=== PATIENT | male | born 1980 ===

== ENCOUNTER 2018-11-19 09:26 | Emergency (ER) | payer OTHER ==
[2018-11-19 09:37] VITALS: BMI 24.3
[2018-11-19] MEDS ORDERED: Alum-Mag Hydrox-Simethicone Susp (30 mL) PO ONE (10:23)
[2018-11-19] MEDS ORDERED: Sodium Chloride 0.9% 1,000 ML IV STA (10:23)
[2018-11-19] MEDS ORDERED: Alum-Mag Hydrox-Simethicone Susp (30 mL) ONE (10:54)
[2018-11-19 11:13] LABS: BASO # 0.1 K/uL (0.0-0.2); BASO % 1.1 % (0.0-2.0); EOS # 0.1 K/uL (0.0-0.7); EOS % 1.6 % (0.0-4.0); HEMOGLOBIN 15.1 g/dL (12.0-18.0); LYMPH # 1.6 K/uL (1.0-4.3); LYMPH % 30.6 % (20.0-40.0); MEAN CELL VOLUME 89.9 fl (80.0-94.0); MEAN CORPUSCULAR HGB CONC 33.3 g/dL (33.0-37.0); MEAN PLATELET VOLUME 9.1 fl (7.2-11.7); MONO # 0.4 K/uL (0.0-0.8); MONO % 7.3 % (0.0-10.0); NEUT % 59.4 % (50.0-75.0); NRBC % 0.2 % (0.0-0.0); RBC 5.04 Mil/uL (4.40-5.90); RED CELL DISTRIBUTION WIDTH 13.4 % (11.5-14.5); WHITE BLOOD COUNT 5.1 K/uL (4.8-10.8)
[2018-11-19 11:40] LABS: ALB/GLOB RATIO 1.4 (1.0-2.1); ALBUMIN 5.3 g/dL (3.5-5.0); ALT/SGPT 64 U/L (21-72); AST/SGOT 46 U/L (17-59); BLOOD UREA NITROGEN 18 mg/dl (9-20); CALCIUM 9.8 mg/dL (8.4-10.2); GFR NON-AFRICAN AMERICAN > 60; LIPASE 89 U/L (23-300)
--- NOTE | 2018-11-19 12:33 | US ---
Date of service: 11/19/2018 HISTORY: epigastric discomfort COMPARISON: None. TECHNIQUE: Sonographic evaluation of the right upper quadrant of the abdomen. FINDINGS: LIVER: Measures 16.1 cm in length. Moderate increased echogenicity of the liver parenchyma. No mass. No intrahepatic bile duct dilatation. GALLBLADDER: Unremarkable. No gallstones. COMMON BILE DUCT: Measures 2.9 mm. No stones. No dilatation. PANCREAS: Unremarkable as visualized. No mass. No ductal dilatation. RIGHT KIDNEY: Measures 11 x 5.2 x 4.1 cm in length. Normal echogenicity. No calculus, mass, or hydronephrosis. AORTA: No aneurysmal dilatation. IVC: Unremarkable. OTHER FINDINGS: None . IMPRESSION: No evidence of cholelithiasis or cholecystitis. Findings suggestive of [id number] hepatic steatosis.
--- NOTE | 2018-11-19 12:44 | ED PDOC ---
HPI: Abdomen Time Seen by Provider: 11/19/18 10:09 Chief Complaint (Nursing): Abdominal Pain Chief Complaint (Provider): epigastric pain, loose stools History Per: Patient History/Exam Limitations: no limitations Additional Complaint(s): 38 y/o M with HTN who presents with epigastric abdominal pain for the past 2 months. He states that the pain is intermittent and usually has chest pressure with it. Episodes can last several hours and cause him to lose his appetite. Denies radiation of pain to arm or jaw, dizziness or SOB. He does have episodes of palpitations when the pain begins and feels that he has become anxious about it. He was seen in [facility] 2 days ago for the chest pressure. Records reviewed and troponin, CXR and blood work were unremarkable. No meds given as per patient. He states that the chest pressure recurred and he began to feel sweaty and had 4 episodes of loose stools yesterday. Denies dizziness, fevers, chills, SOB, radiation of pain to arm or jaw. Past Medical History Reviewed: Historical Data, Nursing Documentation, Vital Signs Vital Signs: Last Vital Signs Temp 98.3 F 11/19/18 09:36 Pulse 70 11/19/18 09:36 Resp 18 11/19/18 09:36 BP 158/83 H 11/19/18 09:36 Pulse Ox 99 11/19/18 09:36 Primary Care Provider: Leonel Fuller - Medical History PMH: HTN, Hyperlipidemia - Surgical History Surgical History: No Surg Hx - Family History Family History: States: Unknown Family Hx - Home Medications Home Medications: Ambulatory Orders Medication Instructions Recorded Aluminum Hydroxide/Magnesium H 30 ml PO Q6 PRN 5 Days udc 11/19/18 [Maalox 30 ml] Famotidine [Pepcid] 20 mg PO BID 7 Days tab 11/19/18 - Allergies Allergies/Adverse Reactions: Allergies Allergy/AdvReac Type Severity Reaction Status Date / Time No Known Allergies Allergy Verified 11/19/18 10:01 Review of Systems Constitutional: Negative for: Fever Cardiovascular: Positive for: Chest Pain, Palpitations Respiratory: Negative for: Shortness of Breath Gastrointestinal: Positive for: Nausea, Vomiting, Abdominal Pain, Diarrhea Physical Exam - Reviewed Nursing Documentation Reviewed: Yes Vital Signs Reviewed: Yes - Physical Exam Appears: Positive for: Non-toxic Skin: Positive for: Normal Color Cardiovascular/Chest: Positive for: Regular Rate, Rhythm Respiratory: Positive for: Normal Breath Sounds Gastrointestinal/Abdominal: Positive for: Tenderness (+ epigastric tenderness on palpation). Negative for: Mass, Distended, Guarding, Rebound Neurological/Psych: Positive for: Awake, Alert, Oriented - Laboratory Results Result Diagrams: 11/19/18 11:05 11/19/18 11:05 Lab Results: Troponin I < 0.0120 ng/mL (0.00-0.120) 11/19/18 11:05 Total Bilirubin 0.4 mg/dl (0.2-1.3) 11/19/18 11:05 AST 46 U/L (17-59) 11/19/18 11:05 ALT 64 U/L (21-72) 11/19/18 11:05 Alkaline Phosphatase 82 U/L (38-126) 11/19/18 11:05 Total Protein 8.9 G/DL (6.3-8.2) H 11/19/18 11:05 Albumin 5.3 g/dL (3.5-5.0) H 11/19/18 11:05 Globulin 3.7 gm/dL (2.2-3.9) 11/19/18 11:05 Albumin/Globulin Ratio 1.4 (1.0-2.1) 11/19/18 11:05 Lipase 89 U/L (23-300) 11/19/18 11:05 - ECG O2 Sat by Pulse Oximetry: 99 Medical Decision Making Medical Decision Making: CBC, CMP, lipase, troponin EKG Abdominal U/S Pepcid 20mg IV Maalox 30mL PO x 1 Lidocaine viscous 15mL PO x 1 NS 1L IV X 1 EKG @ 10:31: sinus, HR 70, normal EKG Abdominal U/S: FINDINGS: LIVER: Measures 16.1 cm in length. Moderate increased echogenicity of the liver parenchyma. No mass. No intrahepatic bile duct dilatation. GALLBLADDER: Unremarkable. No gallstones. COMMON BILE DUCT: Measures 2.9 mm. No stones. No dilatation. PANCREAS: Unremarkable as visualized. No mass. No ductal dilatation. RIGHT KIDNEY: Measures 11 x 5.2 x 4.1 cm in length. Normal echogenicity. No calculus, mass, or hydronephrosis. AORTA: No aneurysmal dilatation. IVC: Unremarkable. OTHER FINDINGS: None . IMPRESSION: No evidence of cholelithiasis or cholecystitis. Findings suggestive of [id number] hepatic steatosis. Re-assessed: pt states that symptoms improved significantly with medications. Pt states has appointment with mold stamper next week. Pt given U/S results a nd advised to take Pepcid for the next week regularly and to use Maalox PRN. Return instructions given. Stable for d/c home. Disposition - Clinical Impression Clinical Impression: Gastritis - Patient ED Disposition Is Patient to be Admitted: No Counseled Patient/Family Regarding: Studies Performed, Diagnosis, Need For Followup, Rx Given - Disposition Referrals: Huy Yu MD, PhD [Staff Provider] - Disposition: Routine/Home Disposition Time: 13:55 Condition: STABLE Additional Instructions: Follow up with [facility] stam[facility] as planned next week for possible endoscopy given symptoms. Take Pepcid as prescribed and Maalox as needed. Prescriptions: Aluminum Hydroxide/Magnesium H [Maalox 30 ml] 30 ml PO Q6 PRN 5 Days udc PRN Reason: Gi Distress Famotidine [Pepcid] 20 mg PO BID 7 Days tab Instructions: Gastritis (DC) Forms: [employer] (Sinhala) Print Language: ALBANIAN
[2018-11-19 14:41] VITALS: BP 138/78; PULSE 72; RESP 16; TEMP 98.1
--- NOTE | 2018-11-19 16:40 | CARD ---
APPROVED REPORT Date of service: 11/19/2018 EKG Measurement Heart [id number] <Conclusion> Normal sinus rhythm Normal ECG
[2018-11-19 21:18] VITALS: O2SAT 99
== END 2018-11-19 14:41 | disposition home or self-care (01) ==
LOC: H.ER 09:26
DX: K29.70 Gastritis, unspecified, without bleeding (principal); I10 Essential (primary) hypertension; E78.5 Hyperlipidemia, unspecified
CPT/HCPCS: 76705; 80053; 83690; 84484; 85025; 93005; 96374; 99283; J7030

== ENCOUNTER 2018-11-23 06:58 | Emergency (ER) | payer OTHER ==
[2018-11-23 06:59] VITALS: BMI 24.3
[2018-11-23 07:11] VITALS: RESP 18; O2SAT 100
[2018-11-23] MEDS ORDERED: Iohexol 240 (50 ml) PO ONE (07:36)
[2018-11-23] MEDS ORDERED: Iohexol 240 (50 ml) ONE (07:43)
[2018-11-23 08:18] LABS: BASO % 0.9 % (0.0-2.0); EOS # 0.1 K/uL (0.0-0.7); EOS % 2.4 % (0.0-4.0); HEMOGLOBIN 14.9 g/dL (12.0-18.0); LYMPH # 1.6 K/uL (1.0-4.3); LYMPH % 29.3 % (20.0-40.0); MEAN CELL VOLUME 90.8 fl (80.0-94.0); MEAN CORPUSCULAR HEMOGLOBIN 30.2 pg (27.0-31.0); MEAN CORPUSCULAR HGB CONC 33.3 g/dL (33.0-37.0); MEAN PLATELET VOLUME 8.9 fl (7.2-11.7); MONO # 0.5 K/uL (0.0-0.8); MONO % 8.8 % (0.0-10.0); NEUT # 3.2 K/uL (1.8-7.0); NEUT % 58.6 % (50.0-75.0); NRBC % 0.1 % (0.0-0.0); RBC 4.92 Mil/uL (4.40-5.90); RED CELL DISTRIBUTION WIDTH 13.4 % (11.5-14.5); WHITE BLOOD COUNT 5.4 K/uL (4.8-10.8)
[2018-11-23 08:27] LABS: ALB/GLOB RATIO 1.5 (1.0-2.1); ALT/SGPT 59 U/L (21-72); AST/SGOT 38 U/L (17-59); BLOOD UREA NITROGEN 15 mg/dl (9-20); CALCIUM 9.4 mg/dL (8.4-10.2); GFR NON-AFRICAN AMERICAN > 60; LIPASE 72 U/L (23-300)
[2018-11-23 08:40] LABS: B-TYPE NATRIURETIC PEPTIDE 20.3 pg/ml (0-450)
[2018-11-23 08:42] LABS: URINE BILIRUBIN NEGATIVE (NEGATIVE); URINE BLOOD SMALL (NEGATIVE); URINE CLARITY CLEAR (Clear); URINE COLOR STRAW (YELLOW); URINE GLUCOSE (UA) NEG (NEGATIVE); URINE LEUKOCYTE ESTERASE NEG Leu/uL (Negative); URINE PROTEIN NEGATIVE (NEGATIVE); URINE UROBILINOGEN 0.2-1.0 mg/dL (0.2-1.0)
[2018-11-23] MEDS ORDERED: Iohexol 300 100 ML IJ ONE (10:13)
[2018-11-23] MEDS ORDERED: Sodium Chloride 0.9% 50 ML IV ONE (10:13)
--- NOTE | 2018-11-23 11:58 | CT ---
Date of service: 11/23/2018 PROCEDURE: CT Abdomen and Pelvis with contrast HISTORY: recurrent abd pain diarrhea weight loss COMPARISON: Not available TECHNIQUE: Contrast dose: 95 cc Omnipaque 300 Radiation dose: Total exam DLP = 521.22 mGy-cm. This CT exam was performed using one or more of the following dose reduction techniques: Automated exposure control, adjustment of the mA and/or kV according to patient size, and/or use of iterative reconstruction technique. FINDINGS: LOWER THORAX: Unremarkable. LIVER: Unremarkable. No gross lesion or ductal dilatation. GALLBLADDER AND BILE DUCTS: Unremarkable. PANCREAS: Unremarkable. No gross lesion or ductal dilatation. SPLEEN: Unremarkable. ADRENALS: Unremarkable. No mass. KIDNEYS AND URETERS: There is focal lack of enhancement only in the inferior right kidney lower pole. This is seen on coronal series 601, image 49 and on axial series 3, image 95. This may be artifact due to beam hardening arising from high density contrast material within the adjacent right colon. However, the possibility of focal pyelonephritis must be considered and correlation with urinalysis is advised. No renal mass or calculus. No hydronephrosis. VASCULATURE: Unremarkable. No aortic aneurysm. No aortic atherosclerotic calcification or mural plaque present. BOWEL: There is circumferential mural thickening of the distal descending and sigmoid colon consistent with nonspecific colitis. The remainder of the colon is unremarkable. There is no bowel obstruction. There are no other abnormal bowel loops. APPENDIX: Normal appendix. PERITONEUM: Unremarkable. No free fluid. No free air. LYMPH NODES: Unremarkable. No enlarged lymph nodes. BLADDER: Unremarkable. REPRODUCTIVE: Normal prostate BONES: No acute fracture. OTHER FINDINGS: None. IMPRESSION: Circumferential mural thickening of the distal descending and sigmoid colon consistent with nonspecific colitis. Possible infectious or inflammatory etiology. Questionable focal pyelonephritis lower pole right kidney. This could be artifactual due to beam hardening artifact from adjacent contrast filled colon. Recommend correlation with urinalysis. No additional abnormality.
--- NOTE | 2018-11-23 12:09 | ED PDOC ---
HPI: Abdomen Time Seen by Provider: 11/23/18 07:23 Chief Complaint (Nursing): Abdominal Pain Chief Complaint (Provider): abdominal pain History Per: Patient, Printing Table Hand (emmett [id number]) Onset/Duration Of Symptoms: Intermittent Episodes, Gradual Context: Food Severity: Moderate Location Of Pain/Discomfort: Epigastric Quality Of Discomfort: Cramping Associated Symptoms: Nausea, Loss Of Appetite. denies: Urinary Symptoms Alleviating Factors: None Additional Complaint(s): 38yo male returns to ED for abd pain- mostly upper radiating to the lower chest associated w loss appetite, nausea, dyspepsia. Denies melena, fever, syncope or weakness. Has appt tomorrow with gastroenterology per patient. Denies prior GI issues to date. Past Medical History Reviewed: Historical Data, Nursing Documentation, Vital Signs Vital Signs: Last Vital Signs Temp 98.6 F 11/23/18 07:09 Pulse 68 11/23/18 07:09 Resp 18 11/23/18 07:09 BP 154/93 H 11/23/18 07:09 Pulse Ox 100 11/23/18 07:09 Primary Care Provider: Leonel Fuller - Medical History PMH: HTN, Hyperlipidemia - Family History Family History: States: Unknown Family Hx - Social History Current smoker - smoking cessation education provided: No Alcohol: None - Home Medications Home Medications: Ambulatory Orders Medication Instructions Recorded Aluminum Hydroxide/Magnesium H 30 ml PO Q6 PRN 5 Days udc 11/19/18 [Maalox 30 ml] Famotidine [Pepcid] 20 mg PO BID 7 Days tab 11/19/18 Ciprofloxacin/Ciprofloxa HCl 500 mg PO BID #10 tab 11/23/18 [Ciprofloxacin] metroNIDAZOLE [Flagyl] 500 mg PO TID #15 tab 11/23/18 traMADol [Ultram] 50 mg PO TID PRN #12 tab 11/23/18 - Allergies Allergies/Adverse Reactions: Allergies Allergy/AdvReac Type Severity Reaction Status Date / Time No Known Allergies Allergy Verified 11/23/18 07:23 Review of Systems Constitutional: Negative for: Fever ENT: Negative for: Throat Pain Cardiovascular: Positive for: Chest Pain Respiratory: Negative for: Shortness of Breath Gastrointestinal: Positive for: Nausea, Abdominal Pain. Negative for: Hematochezia, Hematemesis Genitourinary Male: Negative for: Dysuria Musculoskeletal: Negative for: Neck Pain, Back Pain Skin: Negative for: Rash, Lesions Neurological: Negative for: Weakness, Numbness, Headache Psych: Negative for: Suicidal ideation - Laboratory Results Result Diagrams: 11/23/18 07:50 11/23/18 07:50 Lab Results: Troponin I < 0.0120 ng/mL (0.00-0.120) 11/23/18 07:50 NT-Pro-B Natriuret Pep 20.3 pg/ml (0-450) 11/23/18 07:50 Total Bilirubin 0.4 mg/dl (0.2-1.3) 11/23/18 07:50 AST 38 U/L (17-59) 11/23/18 07:50 ALT 59 U/L (21-72) 11/23/18 07:50 Alkaline Phosphatase 78 U/L (38-126) 11/23/18 07:50 Total Protein 8.3 G/DL (6.3-8.2) H 11/23/18 07:50 Albumin 5.0 g/dL (3.5-5.0) 11/23/18 07:50 Globulin 3.3 gm/dL (2.2-3.9) 11/23/18 07:50 Albumin/Globulin Ratio 1.5 (1.0-2.1) 11/23/18 07:50 Lipase 72 U/L (23-300) 11/23/18 07:50 Urine Color Straw (YELLOW) 11/23/18 07:50 Urine Clarity Clear (Clear) 11/23/18 07:50 Urine pH 7.0 (5.0-8.0) 11/23/18 07:50 Ur Specific [place] 1.009 (1.003-1.030) 11/23/18 07:50 Urine Protein Negative mg/dL (NEGATIVE) 11/23/18 07:50 Urine Glucose (UA) Neg mg/dL (NEGATIVE) 11/23/18 07:50 Urine Ketones Negative mg/dL (NEGATIVE) 11/23/18 07:50 Urine Blood Small (NEGATIVE) 11/23/18 07:50 Urine Nitrate Negative (NEGATIVE) 11/23/18 07:50 Urine Bilirubin Negative (NEGATIVE) 11/23/18 07:50 Urine Urobilinogen 0.2-1.0 mg/dL (0.2-1.0) 11/23/18 07:50 Ur Leukocyte Esterase Neg Josefina/uL (Negative) 11/23/18 07:50 Urine RBC (Auto) < 1 /hpf (0-3) 11/23/18 07:50 - ECG ECG: Positive for: Interpreted By Me ECG Rhythm: Positive for: Normal QRS, Normal ST Segment, Sinus Rhythm Rate: 63 O2 Sat by Pulse Oximetry: 100 Pulse Ox Interpretation: Normal Medical Decision Making Medical Decision Making: labs reviewed and unremarkable CT abd pelv obtained given multiple ED visits for pain Accession No. : [id number] Patient Name / ID : SHANNON POP / [id number] Exam Date : 11/23/2018 10:19:16 ( Approved ) Study Comment : Sex / Age : M / 38Y Creator : Los Sanabria MD Dictator : Los Sanabria MD Patient Transport Orderly : Systems Technologist : Los Sanabria MD Approver2 : Report Date : 11/23/2018 11:54:51 My Comment : Date of service: 11/23/2018 PROCEDURE: CT Abdomen and Pelvis with contrast HISTORY: recurrent abd pain diarrhea weight loss COMPARISON: Not available TECHNIQUE: Contrast dose: 95 cc Omnipaque 300 Radiation dose: Total exam DLP = 521.22 mGy-cm. This CT exam was performed using one or more of the following dose reduction techniques: Automated exposure control, adjustment of the mA and/or kV according to patient size, and/or use of iterative reconstruction technique. FINDINGS: LOWER THORAX: Unremarkable. LIVER: Unremarkable. No gross lesion or ductal dilatation. GALLBLADDER AND BILE DUCTS: Unremarkable. PANCREAS: Unremarkable. No gross lesion or ductal dilatation. SPLEEN: Unremarkable. ADRENALS: Unremarkable. No mass. KIDNEYS AND URETERS: There is focal lack of enhancement only in the inferior right kidney lower pole. This is seen on coronal series 601, image 49 and on axial series 3, image 95. This may be artifact due to beam hardening arising from high density contrast material within the adjacent right colon. However, the possibility of focal pyelonephritis must be considered and correlation with urinalysis is advised. No renal mass or calculus. No hydronephrosis. VASCULATURE: Unremarkable. No aortic aneurysm. No aortic atherosclerotic calcification or mural plaque present. BOWEL: There is circumferential mural thickening of the distal descending and sigmoid colon consistent with nonspecific colitis. The remainder of the colon is unremarkable. There is no bowel obstruction. There are no other abnormal bowel loops. APPENDIX: Normal appendix. PERITONEUM: Unremarkable. No free fluid. No free air. LYMPH NODES: Unremarkable. No enlarged lymph nodes. BLADDER: Unremarkable. REPRODUCTIVE: Normal prostate BONES: No acute fracture. OTHER FINDINGS: None. IMPRESSION: Circumferential mural thickening of the distal descending and sigmoid colon consistent with nonspecific colitis. Possible infectious or inflammatory etiology. Questionable focal pyelonephritis lower pole right kidney. This could be artifactual due to beam hardening artifact from adjacent contrast filled colon. Recommend correlation with urinalysis. No additional abnormality. UA no signs infection , just TR blood recommend repeat 10days Has appt tomorrow with Dr Aimee CANELA, he believes, in [place]. Results explained in icelandic and [place] and importance of followup stressed. Rx flagyl and a cipro, followup tomorrow. Disposition - Clinical Impression Clinical Impression: Colitis, Abdominal pain - Patient ED Disposition Is Patient to be Admitted: No Counseled Patient/Family Regarding: Studies Performed, Diagnosis, Need For Followup, Rx Given - Disposition Referrals: [facility] [Outside] Disposition: Routine/Home Disposition Time: 14:35 Condition: STABLE Additional Instructions: See Dr Yu/ GI doctor tomorrow as scheduled. Return to ER for any worse or new symptoms. You may require colonoscopy or endoscopy to better evaluate your findings on CT imaging. Prescriptions: Ciprofloxacin/Ciprofloxa HCl [Ciprofloxacin] 500 mg PO BID #10 tab metroNIDAZOLE [Flagyl] 500 mg PO TID #15 tab traMADol [Ultram] 50 mg PO TID PRN #12 tab PRN Reason: Pain, Moderate (4-7) Instructions: Acute Abdomen (Belly Pain), Adult (DC), Colitis (DC) Forms: [employer] (Frisian) Print Language: MOROCCAN
[2018-11-23 13:46] VITALS: BP 142/90; TEMP 98.4
--- NOTE | 2018-11-23 17:31 | CARD ---
APPROVED REPORT Date of service: 11/23/2018 EKG Measurement Heart [id number] [place] [id number] <Conclusion> Normal sinus rhythm Normal ECG
[2018-11-26 15:36] VITALS: PULSE 63
== END 2018-11-23 15:23 | disposition home or self-care (01) ==
LOC: H.ER 06:58
DX: K52.9 Noninfective gastroenteritis and colitis, unspecified (principal); R10.9 Unspecified abdominal pain; I10 Essential (primary) hypertension; E78.5 Hyperlipidemia, unspecified
CPT/HCPCS: 74177; 80053; 81003; 83690; 83735; 83880; 84484; 85025; 93005; 99284; Q9966; Q9967